=== PATIENT | female | born 1955 | race Asian ===

== ENCOUNTER 2016-11-09 15:57 | Emergency (ER) | payer BC, OTHER ==
[2016-11-09 16:12] VITALS: BP 182/68
[2016-11-09] MEDS ORDERED: ONDANSETRON 4 MG TAB.RAPDIS PO ONE (16:19)
[2016-11-09] MEDS ORDERED: OXYCODONE-ACETAMINOPHEN 5-325 MG TABLET PO ONE (16:19)
[2016-11-09] MEDS ORDERED: IBUPROFEN 600 MG TABLET PO ONE (16:19)
--- NOTE | 2016-11-09 16:25 | ER Document Report ---
ED GI/ - General Chief Complaint: Flank Pain Stated Complaint: STOMACH PAIN Time Seen by Provider: 11/09/16 16:19 Notes: The patient is a 61-year-old female, past medical history diabetes, hyperlipidemia, presents with 1 hour of right flank pain radiating into her groin, nausea and vomiting x2 times. She has never had this before and does not have a history of kidney stones. She denies diarrhea, constipation, surgical history, fevers, hematuria, dysuria, chest pain, shortness of breath, numbness, tingling or hematemesis. TRAVEL OUTSIDE OF THE [place] IN LAST 30 DAYS: No - Related Data Allergies/Adverse Reactions: hair dye Adverse Reaction (Intermediate, Uncoded 11/09/16 16:10) swelling drainage to scalp orbital swelling Past Medical History - General Information source: Patient - Social History Smoking Status: Never Smoker Family History: Reviewed & Not Pertinent Patient has suicidal ideation: No Patient has homicidal ideation: No Renal/ Medical History: Denies: Hx Peritoneal Dialysis - Immunizations Hx Diphtheria, Pertussis, Tetanus Vaccination: No Review of Systems - Review of Systems Notes: REVIEW OF SYSTEMS: CONSTITUTIONAL: -fevers, -chills EENT: -eye pain, -difficulty swallowing, -nasal congestion CARDIOVASCULAR:-chest pain, -syncope. RESPIRATORY: -cough, -SOB GASTROINTESTINAL: +abdominal pain, +nausea, +vomiting, -diarrhea GENITOURINARY: -dysuria, -hematuria MUSCULOSKELETAL: +right flank pain, -neck pain SKIN: -rash or skin lesions. HEMATOLOGIC: -easy bruising or bleeding. LYMPHATIC: -swollen, enlarged glands. NEUROLOGICAL: -altered mental status or loss of consciousness, -headache, - neurologic symptoms PSYCHIATRIC: -anxiety, -depression. ALL OTHER SYSTEMS REVIEWED AND NEGATIVE. Physical Exam - Vital signs Vitals: Temp Pulse Resp BP Pulse Ox 98.3 F 72 20 182/68 H 95 11/09/16 16:11 11/09/16 16:11 11/09/16 16:11 11/09/16 16:11 11/09/16 16:11 - Notes Notes: PHYSICAL EXAMINATION: GENERAL: Uncomfortable. HEAD: Atraumatic, normocephalic. EYES: Pupils equal round and reactive to light, extraocular movements intact, sclera anicteric, conjunctiva are normal. ENT: nares patent, oropharynx clear without exudates. Moist mucous membranes. NECK: Normal range of motion, supple without lymphadenopathy LUNGS: Breath sounds clear to auscultation bilaterally and equal. No wheezes rales or rhonchi. HEART: Regular rate and rhythm without murmurs ABDOMEN: Soft, nontender, normoactive bowel sounds. No guarding, no rebound. No masses appreciated. No CVA tenderness. EXTREMITIES: Normal range of motion, no pitting or edema. No cyanosis. NEUROLOGICAL: Cranial nerves grossly intact. Normal speech, normal gait. Normal sensory and motor exams. PSYCH: Normal mood, normal affect. SKIN: Warm, Dry, normal turgor, no rashes or lesions noted. Course - Re-evaluation Re-evalutation: Patient with a 7 mm stone at the right UVJ that may have recently passed. She feels much better. No signs of infection on urinalysis and labs are unremarkable. Instructed her to have her blood pressure rechecked by her primary care physician because it is elevated here, which is most likely due to the pain that she was in. Will provide her with a few days of antinausea medicine, pain medicine and follow-up at urology. Given strict return precautions and she understands. - Vital Signs Vital signs: Temp Pulse Resp BP Pulse Ox 98.3 F 72 20 182/68 H 95 11/09/16 16:11 11/09/16 16:11 11/09/16 16:11 11/09/16 16:11 11/09/16 16:11 - Laboratory Result Diagrams: 11/09/16 16:35 11/09/16 16:35 Laboratory results interpreted by me: 11/09/16 11/09/16 16:35 16:35 Glucose 180 H Urine Protein 30 H Urine Glucose (UA) 150 H Urine Blood SMALL H - Diagnostic Test Radiology reviewed: Image reviewed, Reports reviewed Radiology results interpreted by me: CT A/P: 1. Moderate right-sided hydronephrosis. There is a 7 mm calculus seen in the region of the right UVJ which either represents an obstructing calculus at the ureteral vesicular junction versus a recently passed calculus within the bladder. No other nephrolithiasis identified. No hydronephrosis on the left. No renal mass lesions identified on this noncontrast study. 2. Cholelithiasis without acute cholecystitis. 3. Grade 1 anterolisthesis of L4 on L5. Scattered degenerative changes noted throughout the lumbar and lower thoracic spine. Discharge - Discharge Clinical Impression: Kidney stone on right side Condition: Stable Disposition: HOME, SELF-CARE Additional Instructions: KIDNEY STONE: You are passing or have passed a kidney stone. These stones are usually due to increased calcium or uric acid concentrations in your urine. Stones within the kidney itself are not painful. The pain occurs as the stone leaves the kidney to pass down the long tube, called the ureter, leading to the bladder. If the stone is small, it will usually pass by itself. Most patients can pass the stone at home. You will usually receive medications for pain, nausea or vomiting, and sometimes a medication to assist in passing the kidney stone. However, if the pain is very severe or if vomiting prevents you from taking oral pain medications, you may need to return for further treatment. Drink three or four quarts of fluids per day. You will be given pain medication (if needed) and urine strainers. Strain all your urine to see if the stone passes. If your doctor has asked you to bring the stone in for analysis, return with the stone once it has passed. Return if pain or vomiting become severe, if you develop a high fever, if you are unable to pass your urine, or if other unusual symptoms occur. TORADOL INJECTION: You have been given an injection of ketorolac tromethamine (Toradol). This is an excellent, safe drug for pain control. It also has potent antiinflammatory action. You should have significant pain relief within about one hour. Toradol is not addicting and is non-sedating. It does not interfere with driving or work. Call or return if you develop itching, hives, shortness of breath, or rash. PAIN MEDICATION INJECTION: You have received an injection of a pain medication. You should experience significant pain relief within 45 minutes. This drug is a narcotic - - it will impair your judgement, slow your reaction time and make you sleepy ( as well as relieve your pain). Narcotics also can cause nausea. You should not drive, work with machinery, or perform any task requiring mental alertness until all effects of the medication are gone -- six to eight hours. Do not take any alcohol, or sedatives, and do not take any other medication without checking with your physician. ANTINAUSEA MEDICATION: You have been given a medication to suppress nausea and vomiting. This type of medication can be given as a shot, pill, or suppository. It will usually last for many hours. Pills and shots usually last six to eight hours, suppositories last about 12 hours. For the typical illness, only one or two doses of the medication may be necessary. Mild lightheadedness may occur. This type of medicine can cause drowsiness. Do not drive or operate dangerous machinery while under its influence. Do not mix with alcohol. See your doctor at once if you have muscle spasms or tightness, or uncontrollable motions (particularly of the neck, mouth, or jaw). Persistent vomiting or severe lightheadedness should also be evaluated by the physician. ORAL NARCOTIC MEDICATION: You have been given a prescription for pain control. This medication is a narcotic. It's best taken with food, as nausea can result if taken on an empty stomach. Don't operate machinery or drive within six hours of taking this medication. Do not combine this medicine with alcohol, or with any medication which can cause sedation (such as cold tablets or sleeping pills) unless you get permission from the physician. Narcotics tend to cause constipation. If possible, drink plenty of fluids and eat a diet high in fiber and fruits. Please be aware that prescription narcotics also have the potential for abuse. People become addicted to these medications because of the general sense of wellbeing that they induce. This feeling along with a significant reduction in tension, anxiety, and aggression provides a stimulating seductive quality to these drugs. Once your pain is under control, we encourage you to discard your unused narcotics. FLOMAX (tamsulosin): Flomax is a medicine that shrinks the prostate gland. It helps relieve symptoms of benign prostatic hypertrophy, such as frequent urination, weak stream, and inadequate emptying. It has been shown to dilate the ureter (tube leading from the kidney to the bladder) and help in passing kidney stones Flomax usually causes no side effects. You may notice slight tiredness and dizziness for a few days. Some patients develop nasal congestion. Rarely, impotence can occur. If the symptoms are bothersome and don't improve with continued use, call your doctor. Contact your doctor or return if you have fainting spells, severe weakness or dizziness, shortness of breath, or rash. FOLLOW-UP CARE: If you have been referred to a physician for follow-up care, call the physician s office for an appointment as you were instructed or within the next two days. If you experience worsening or a significant change in your symptoms, notify the physician immediately or return to the Emergency Department at any time for re-evaluation. Prescriptions: Hydrocodone/Acetaminophen [[place] 5-325 mg Tablet] 1 tab PO Q6H PRN #8 tablet PRN Reason: Ondansetron [Zofran Odt 4 mg Tablet] 1 - 2 tab PO Q4H PRN #15 tab.rapdis PRN Reason: For Nausea/Vomiting Tamsulosin HCl [Flomax] 0.4 mg PO DAILY #10 cap.er.24h Forms: Elevated Blood Pressure Referrals: JAEL CHAUDHRY MD [ACTIVE STAFF] - Follow up as needed
[2016-11-09] MEDS ORDERED: MORPHINE SULFATE 10 MG/ML INJ IV ONE (16:26)
[2016-11-09] MEDS ORDERED: KETOROLAC TROMETHAMINE INJ/PF 30 MG/1 ML SDV IV ONE (16:26)
[2016-11-09] MEDS ORDERED: ONDANSETRON HCL INJ/PF 4 MG/2 ML SDV IV ONE (16:26)
[2016-11-09 16:54] LABS: ABSOLUTE BASOPHILS # (AUTO) 0.1 10^3/uL (0.0-0.2); ABSOLUTE LYMPHOCYTES (AUTO) 1.5 10^3/uL (0.5-4.7); ABSOLUTE MONOCYTES (AUTO) 0.5 10^3/uL (0.1-1.4); BASOPHILS % (AUTO) 0.7 % (0-2); EOSINOPHILS % (AUTO) 0.5 % (0-6); HEMATOCRIT 42.2 % (36.0-47.0); HEMOGLOBIN 13.5 g/dL (12.0-15.5); HGB HCT DIFFERENCE -1.7; LYMPHOCYTES % (AUTO) 18.1 % (13-45); MEAN CORPUSCULAR VOLUME 88 fl (80-97); MONOCYTES % (AUTO) 6.1 % (3-13); RED BLOOD COUNT 4.81 10^6/uL (3.72-5.28); RED CELL DISTRIBUTION WIDTH 12.9 % (11.5-14.0); SEGMENTED NEUTROPHILS % (AUTO) 74.6 % (42-78); WHITE BLOOD COUNT 8.1 10^3/uL (4.0-10.5)
[2016-11-09 17:00] LABS: AMORPHOUS SEDIMENT,URINE TRACE /HPF; APPEARANCE,URINE TURBID; BILIRUBIN,URINE NEGATIVE (NEGATIVE); GLUCOSE, URINE 150 mg/dL (NEGATIVE); KETONES,URINE NEGATIVE (NEGATIVE); LEUKOCYTE ESTERASE,URINE NEGATIVE (NEGATIVE); NITRITE,URINE NEGATIVE (NEGATIVE); PROTEIN,URINE 30 mg/dL (NEGATIVE); UROBILINOGEN,URINE NEGATIVE mg/dL (<2.0)
[2016-11-09 17:11] LABS: ALANINE AMINOTRANSFERASE 36 U/L (9-52); ALBUMIN 4.5 g/dL (3.5-5.0); ALKALINE PHOSPHATASE 74 U/L (38-126); ANION GAP 14 (5-19); ASPARTATE AMINO TRANSFERASE 24 U/L (14-36); BILIRUBIN,DIRECT 0.3 mg/dL (0.0-0.4); BILIRUBIN,TOTAL 0.6 mg/dL (0.2-1.3); BLOOD UREA NITROGEN 14 mg/dL (7-20); CALCIUM 9.6 mg/dL (8.4-10.2); CARBON DIOXIDE 27 mmol/L (22-30); CHLORIDE 104 mmol/L (98-107); CREATININE RESULT 0.75 mg/dL (0.52-1.25); GLUCOSE 180 mg/dL (75-110); POTASSIUM 3.6 mmol/L (3.6-5.0); SODIUM 144.5 mmol/L (137-145); TOTAL PROTEIN 8.2 g/dL (6.3-8.2)
--- NOTE | 2016-11-09 17:18 | RADIOLOGY REPORT (SQ) ---
EXAM DESCRIPTION: CT LTD RENAL STONE PROTOCOL ON COMPLETED DATE/TIME: 11/09/2016 4:56 pm REASON FOR STUDY: left flank pain COMPARISON: None. TECHNIQUE: CT scan of the abdomen and pelvis performed without intravenous or oral contrast. Images reviewed with lung, soft tissue, and bone windows. Reconstructed coronal and sagittal MPR images revi ewed. All images stored on PACS. All CT scanners at this facility use dose modulation, iterative reconstruction, and/or weight based d osing when appropriate to reduce radiation dose to as low as reasonably achievable (ALARA). [facility]: Dose Right [facility]: CareDose [facility]: Dose Right [facility]: Teradose 4D [facility]: Smart [employer] RADIATION DOSE: Up-to-date CT equipment and radiation dose reduction techniques were employed. CTDIv ol: 10.7 mGy. DLP: 551 mGy-cm.mGy. LIMITATIONS: None. FINDINGS: LOWER CHEST: No significant findings. No nodules or infiltrates. NON-CONTRASTED LIVER, SPLEEN, ADRENALS: Evaluation limited by lack of IV contrast. No identified sign ificant masses. PANCREAS: No masses. No peripancreatic inflammatory changes. GALLBLADDER: Gallstones. No inflammatory changes to suggest cholecystitis. RIGHT KIDNEY AND URETER: No suspicious masses. Assessment limited by lack of IV contrast. There is moderate right-sided hydronephrosis and periureteral fat stranding. There is a 7 mm calculus seen at the right UVJ/ within the lumen of the bladder. This either represents an obstructing calculus at t he UVJ versus a recently passed calculus. No other renal calculi are identified. LEFT KIDNEY AND URE TER: No suspicious masses. Assessment limited by lack of IV contrast. No significant calcifications . No hydronephrosis or hydroureter. AORTA AND RETROPERITONEUM: No aneurysm. No retroperitoneal masses or adenopathy. BOWEL AND PERITONEAL CAVITY: No obvious masses or inflammatory changes. No free fluid. APPENDIX: Normal. PELVIS, BLADDER, AND ABDOMINAL WALL:Bladder is otherwise unremarkable. No pelvic mass or adenopathy lesions. No abdominal wall masses or significant hernias. BONES: Anterolisthesis of L4 on L5, grade 1. Mild degenerative changes scattered throughout the zaira samy of the lumbar spine and lower thoracic spine. OTHER: No other significant finding. IMPRESSION: 1. Moderate right-sided hydronephrosis. There is a 7 mm calculus seen in the region of the right UVJ which either represents an obstructing calculus at the ureteral vesicular junction vers us a recently passed calculus within the bladder. No other nephrolithiasis identified. No hydroneph rosis on the left. No renal mass lesions identified on this noncontrast study. 2. Cholelithiasis without acute cholecystitis. 3. Grade 1 anterolisthesis of L4 on L5. Scattered degenerative changes noted throughout the lumbar and lower thoracic spine. TECHNICAL DOCUMENTATION: JOB ID: [id number] Quality ID # [id number]: Final reports with documentation of one or more dose reduction techniques (e.g., Au tomated exposure control, adjustment of the mA and/or kV according to patient size, use of iterative reconstruction technique) 2010 [employer]- All Rights Reserved
== END 2016-11-09 17:51 | disposition home or self-care (01) ==
LOC: ER 15:57
DX: N20.0 Calculus of kidney (principal); N13.30 Unspecified hydronephrosis; R10.9 Unspecified abdominal pain; R11.2 Nausea with vomiting, unspecified; E11.9 Type 2 diabetes mellitus without complications; M47.9 Spondylosis, unspecified
CPT/HCPCS: 99284; 96374; 96375; 36415; 83690; 85025; 80053; 81001; 76380; S0119; J1885; J2270; J2405

== ENCOUNTER 2016-12-10 09:39 | Day surgery (SDC) | payer OTHER ==
[2016-12-08 12:53] LABS: HEMATOCRIT 40.3 % (36.0-47.0); HEMOGLOBIN 13.6 g/dL (12.0-15.5); HGB HCT DIFFERENCE 0.5; MEAN CORPUSCULAR HEMOGLOBIN 29.3 pg (27.0-33.4); MEAN CORPUSCULAR HGB CONC 33.7 g/dL (32.0-36.0); MEAN CORPUSCULAR VOLUME 87 fl (80-97); RED BLOOD COUNT 4.65 10^6/uL (3.72-5.28); RED CELL DISTRIBUTION WIDTH 12.5 % (11.5-14.0); WHITE BLOOD COUNT 5.2 10^3/uL (4.0-10.5)
[2016-12-08 13:31] LABS: ANION GAP 11 (5-19); BLOOD UREA NITROGEN 9 mg/dL (7-20); CALCIUM 9.7 mg/dL (8.4-10.2); CARBON DIOXIDE 28 mmol/L (22-30); CHLORIDE 103 mmol/L (98-107); CREATININE RESULT 0.62 mg/dL (0.52-1.25); GLUCOSE 97 mg/dL (75-110); POTASSIUM 4.5 mmol/L (3.6-5.0); SODIUM 141.5 mmol/L (137-145)
--- NOTE | 2016-12-08 13:41 | EKG REPORT ---
SEVERITY:- ABNORMAL ECG - SINUS RHYTHM PROBABLE INFERIOR INFARCT, AGE INDETERMINATE : Confirmed by: Saurabh Reaves MD 08-Dec-2016 13:40:29
[~2016-12-10 09:39] MED LIST: CIPROFLOXACIN 400 MG/D5W RTU 400 MG/200 ML RTUPB IV PRN; LACTATED RINGERS 1000 ML IV PRN; LIDOCAINE 0.5% INJ-PF (5 MG/ML) 50 ML SDV SUBCUT PRN
[2016-12-10] MEDS ORDERED: HYDROMORPHONE HCL INJ/PF 2 MG/ML AMPULE ONE (10:30)
[2016-12-10] MEDS ORDERED: FENTANYL CITRATE INJ/PF 100 MCG/2 ML AMPUL ONE ×2 (10:31)
[2016-12-10] MEDS ORDERED: PROPOFOL INJ 200 MG/20 ML VIAL IV ONE (10:31)
[2016-12-10] MEDS ORDERED: MIDAZOLAM 2 MG/2 ML INJ ONE (10:31)
[2016-12-10] MEDS ORDERED: LIDOCAINE 2% URO-JET 5 ML KIT ONE (12:17)
--- NOTE | 2016-12-10 12:48 | Operative Report ---
Operative Report DATE OF SURGERY: 12/10/16 PREOPERATIVE DIAGNOSIS: Urolithiasis POSTOPERATIVE DIAGNOSIS: urolithiasis, passed ureteral calc OPERATION: Cystoscopy and pyelogram and Right ureteroscopy SURGEON: EDY PAGE ANESTHESIA: GA ESTIMATED BLOOD LOSS: 0 INTRAOPERATIVE FINDINGS: Passed ureteral calc PROCEDURE: 61-year-old female who previously saw me in the clinic with a 7 mm distal right ureteral stone, who is having pain at that time, she tried medical expulsion therapy with still having some cramping on the right side, we elected for cystoscopy right ureteroscopy. Major findings of the case was normal-appearing bladder, semirigid ureteroscopy all the way up until the UPJ, no stone is identified. Patient came to the operating room was placed in dorsal lithotomy position is prepped draped and padded in the sterile standard fashion for this procedure. After the 21 Bengali cystoscope to cannulate the urethra into the bladder the entire bladder is within normal limits, there is no mucosal abnormalities, there is no lesions, there is no stone identified at the base of the bladder. With an open-ended ureteral catheter shot electrogram the distal ureter I do not see a filling defect, however since the patient was having cramping right- sided pain at this point he decided to place a 0.35 sensor wire into the right ureteral orifice all the way up until the renal pelvis confirmed under fluoroscopy, I then used a 6.9 Bengali semirigid ureteroscope I cannulated the right ureteral orifice and tip of all the pins of the UPJ and no stone was identified. This point patient bladder is empty she tolerated procedure well, and we will arrange follow-up to see us in the urology clinic.
[2016-12-10] MEDS ORDERED: PROMETHAZINE HCL INJ 25 MG/1 ML VIAL IV PRN (13:22)
[2016-12-10] MEDS ORDERED: ONDANSETRON HCL INJ/PF 4 MG/2 ML SDV IV PRN ×2 (13:22→13:37)
[2016-12-10] MEDS ORDERED: MORPHINE SULFATE 10 MG/ML INJ IV PRN (13:22)
[2016-12-10] MEDS ORDERED: DIPHENHYDRAMINE HCL 50 MG/ML VIAL IV PRN (13:22)
[2016-12-10] MEDS ORDERED: FENTANYL CITRATE INJ/PF 100 MCG/2 ML AMPUL IV PRN ×3 (13:22)
[2016-12-10] MEDS ORDERED: KETOROLAC TROMETHAMINE INJ/PF 30 MG/1 ML SDV IV PRN (13:37)
[2016-12-10] MEDS ORDERED: NEOSTIGMINE METHYLSULFATE 10 MG/10 ML VIAL ONE (14:23)
[2016-12-10] MEDS ORDERED: ROCURONIUM BROMIDE INJ 50 MG/5 ML VIAL IV ONE (14:23)
[2016-12-10] MEDS ORDERED: SUCCINYLCHOLINE CHLORIDE INJ 200 MG/10 ML VIAL ONE (14:23)
[2016-12-10] MEDS ORDERED: GLYCOPYRROLATE INJ 0.4 MG/2 ML VIAL ONE (14:23)
--- NOTE | 2016-12-10 14:52 | RADIOLOGY REPORT (SQ) ---
EXAM DESCRIPTION: PYELOGRAM RETROGRADE COMPLETED DATE/TIME: 12/10/2016 2:39 pm REASON FOR STUDY: RETROGRADE PYELOGRAM IN CYSTO RT SIDE N20.0 CALCULUS OF KIDNEY COMPARISON: None. FLUOROSCOPY TIME: 6 second 3 images saved to PACS. TECHNIQUE: Intra-operative images acquired during surgical procedure to evaluate progress. NUMBER OF IMAGES: 3 LIMITATIONS: None. FINDINGS: Fluoroscopic images from retrograde pyelogram were submitted for review. Image and straig ht contrast injection within the distal right ureter with subsequent wire cannulation and placement o f a scope in the ureter. Please see operative report for full details regarding procedure. IMPRESSION: IMAGE(S) OBTAINED DURING PROCEDURE. COMMENT: Quality ID [id number]: Final reports for procedures using fluoroscopy that document radiation exp osure indices, or exposure time and number of fluorographic images (if radiation exposure indices are not available) Please consult full operative report of the attending physician for description of the procedure. TECHNICAL DOCUMENTATION: JOB ID: [id number] [email or web address]- All Rights Reserved
[2016-12-10 15:24] VITALS: BP 138/81
== END 2016-12-10 15:10 | disposition home or self-care (01) ==
LOC: OROUT 09:39
PROVIDERS: ATTEND Urology
PROC: BT1DZZZ Fluoroscopy of Right Kidney, Ureter and Bladder (ICD-10-PCS; principal; 2016-12-10 12:00)
DX: N20.1 Calculus of ureter (principal); E11.9 Type 2 diabetes mellitus without complications; E78.00 Pure hypercholesterolemia, unspecified; Z79.84 Long term (current) use of oral hypoglycemic drugs; Z79.899 Other long term (current) drug therapy
CPT/HCPCS: 93005; 36415; 82962; 85027; 80048; 74420; 93010; 52005; C1769; C1758; Q9967; J2250; J3490; J3010; J0330; J2704; J0744; 918; J1170